=== PATIENT | female | born 1945 | race African-American/Black ===

== ENCOUNTER 2016-05-27 | Inpatient (IN) | payer MEDICARE ==
[~2016-05-27] VITALS: Ht 154.9 cm; Wt 64.4 kg
--- NOTE | 2016-05-27 00:40 | NUR ---
SEEN AND EXAMINED BY ERMD , PT IS FOR XRAYS.
[2016-05-27] MEDS ORDERED: DICLOFENIC INJ (00:42)
[2016-05-27] MEDS ORDERED: ATOR20TA PO (00:42)
[2016-05-27] MEDS ORDERED: AMLO10TA2 PO (00:42)
[2016-05-27] MEDS ORDERED: [UNRECOGNIZED DRUG - OTHER] PO (00:42)
[2016-05-27] MEDS ORDERED: TRAMADOL PO (00:42)
[2016-05-27] MEDS ORDERED: METF-494 PO (00:42)
[2016-05-27] MEDS ORDERED: LEVO75TA7 PO (00:42)
[2016-05-27] MEDS ORDERED: KETOROLAC TROMETHAMINE 30 MG INJ ONE (00:43)
[2016-05-27] MEDS ORDERED: KETOROLAC TROMETHAMINE 30 MG INJ IM ONE (00:45)
[2016-05-27] MEDS ORDERED: NITROGLYCERIN OINT 1 GM PACKET TP ONE ×2 (02:30→03:03)
[2016-05-27] MEDS ORDERED: ASPIRIN 81 MG TAB.CHEW PO ONE (02:30)
--- NOTE | 2016-05-27 02:30 | NUR ---
DR CHO IN TO TALK TO PT REGARDING HER NEG RESULTS, PT NOW COMPLAINING OF CHEST DISCOMFORT TO THE DR.WANTED TO BE ADMITTED. EKG DONE , PLACED ON THE MONITOR-SR,SL INSERTED TO RT AC AND BLOOD DRAWN.ASPIRIN AND NITRO PASTE GIVEN TO PT.
[2016-05-27] MEDS ORDERED: ASPIRIN 81 MG TAB.CHEW ONE (03:03)
[2016-05-27 03:05] LABS: MONOCYTES # (AUTO) 0.6 K/uL (0.1-1.30); WHITE BLOOD COUNT (AUTO) 9.9 K/uL (4.0-11.2)
[2016-05-27 04:16] LABS: LYMPHOCYTES # (AUTO) 1.9 K/uL (0.8-4.8)
[2016-05-27 04:53] LABS: CALCIUM 9.1 mg/dL (8.5-10.1); CREATININE 0.9 mg/dL (0.6-1.3); POTASSIUM 3.7 mmol/L (3.5-5.1)
[2016-05-27 04:54] LABS: EOSINOPHILS # (AUTO) 0.2 K/uL (0.0-0.7); EOSINOPHILS % (AUTO) 2.2 % (0.0-7.0); HEMATOCRIT 41.9 % (37.0-47.0); HEMOGLOBIN 13.7 g/dL (12.0-16.0); LYMPHOCYTES % (AUTO) 19.4 % (20.5-51.5); MEAN CORPUSCULAR HEMOGLOBIN 28.3 uug (27.0-31.0); MEAN CORPUSCULAR HGB CONC 33 g/dL (32.0-37.0); MEAN CORPUSCULAR VOLUME 86.4 fL (81.0-99.0); MONOCYTES % (AUTO) 6.2 % (0.0-11.0); NEUTROPHILS # (AUTO) 7.2 K/uL (1.8-8.9); NEUTROPHILS % (AUTO) 72.2 % (38.5-71.5); PLATELET COUNT (AUTO) 265 K/uL (150-450); RED BLOOD CELL COUNT(AUTO) 4.85 MIL/uL (4.20-5.40); RED CELL DISTRIBUTION WIDTH 13.5 % (11.5-14.5)
[2016-05-27 05:05] LABS: BILIRUBIN,DIRECT 0.1 mg/dL (0.0-0.2); BILIRUBIN,TOTAL 0.3 mg/dL (0.2-1.0); TOTAL PROTEIN, SERUM 7.7 g/dL (6.4-8.2)
--- NOTE | 2016-05-27 05:38 | NUR ---
LAB RESULTSIN DR MORENO CALLED BACK.
--- NOTE | 2016-05-27 06:01 | NUR ---
PT FOR TELE ADMIT, REPORT GIVEN TO CARLA PT TO GO TO 216 AT 0630 PER NURSE REQ.
--- NOTE | 2016-05-27 06:35 | NUR ---
PT WAS BROUGHT IN TO FLOOR VIA WHEELCHAIR, ADMITTED TO TELE UNDER DR. MORENO. DX: CHESTPAIN. A/O X 4. ABLE TO MAKE NEEDS KNOWN. DENIES CHEST PAIN AT THIS TIME. BELONGING LIST REVIEWED.
[2016-05-27 06:46] VITALS: BP 133/77
--- NOTE | 2016-05-27 08:03 | NUR ---
PT ADMITTED, DR ESPOSITO PAGED FOR ORDERS
--- NOTE | 2016-05-27 09:07 | NUR ---
SECOND CALL PLACED TO DR ESPOSITO, DR JOSHI CALLED BACK AND ORDERED PAIN MEDICATION FOR PT PAIN AND SAID DR MATTHEWS WILL BE IN SHORTLY TO COMPLETE FURTHER ORDERS
[2016-05-27] MEDS ORDERED: KETOROLAC TROMETHAMINE 30 MG INJ IM PRN (09:15)
--- NOTE | 2016-05-27 11:20 | NUR ---
STILL NO ORDERS, PAGED DR MATTHEWS AGAIN. PT RESTING COMFORTABLY IN BED, SR ON THE TELE MONITOR.
[2016-05-27] MEDS ORDERED: ONDANSETRON 4 MG/2 ML VIAL IV PRN (12:00)
[2016-05-27] MEDS ORDERED: ACETAMINOPHEN 325 MG TABLET PO PRN (12:00)
[2016-05-27] MEDS ORDERED: HYDROMORPHONE 1 MG/1 ML DISP.SYRIN IV PRN (12:00)
[2016-05-27 12:01] VITALS: BP 138/67
--- NOTE | 2016-05-27 12:08 | NUR ---
SPOKE WITH DR MATTHEWS, TEL/RBO ORDERS GIVEN, WILL FOLLOW THROUGH
[2016-05-27] MEDS: NITROGLYCERIN OINT 1 GM PACKET TP SCH ×2 (13:01→18:13)
--- NOTE | 2016-05-27 15:38 | NUR ---
PT RESTING COMFORTABLY IN BED, STATES NO MORE CHEST PAIN OR PRESSURE AT THIS TIME. SR ON THE TELE MONITOR, ALL SAFETY AND COMFORT MEASURES ATTENDED TO, CALL LIGHT IN REACH.
[2016-05-27 16:13] VITALS: BP 127/74
[2016-05-27] MEDS: METFORMIN HCL 500 MG TABLET PO SCH (18:00)
--- NOTE | 2016-05-27 18:16 | NUR ---
pt refusing metformin at this time. states "twice a day is too much and I know my body, I do not need it right now. I will take it in the morning."
[2016-05-27 19:00] VITALS: BP 140/79
[2016-05-27] MEDS: TRAMADOL HCL 50 MG TABLET PO PRN (20:47)
[2016-05-27] MEDS: ATORVASTATIN 20 MG TABLET PO SCH (20:47)
[2016-05-27] MEDS: ENOXAPARIN SODIUM 40 MG/0.4 ML DISP.SYRIN SQ SCH (20:49)
[2016-05-28] MEDS: NITROGLYCERIN OINT 1 GM PACKET TP SCH ×4 (00:24→18:00)
[2016-05-28 00:36] VITALS: BP 138/56
[2016-05-28 04:00] VITALS: BP 123/70
--- NOTE | 2016-05-28 06:00 | NUR ---
PT ALERT,ORIENTED,AMBULATORY, C/O BACK PAIN ALL NIGHT ,TRAMADOL GIVEN BUT DIDN'T GIVE ANY RELIEF ,STARTED NEW IV SITE AND GIVEN DILAUDID IV,PT STATED IT ONLY PUT HER TO SLEEP BUT NOT RELIEVING THE PAIN,REFUSED TRAMADOL THIS MORNING AND SHE WILL ASK MD FOR PAIN MEDS.DIDN'T WANT ME TO CALL MD LAST NIGHT SHE DON'T WANT TO BOTHER THE DOCTOR.REFUSED LOVENOX SHOT DESPITE EXPLAINING THE RISK AND BENEFITS OF THE MEDS AND PT STILL REFUSED ,AND SHE WILL WALK TODAY. SLEEPING AFTER PAIN SHOT OTHERWISE CONTINUE TO HAVE BACK PAIN SHE SAYS SHE HAS OSTEOARTHRITIS IN THE BACK,ENDORSED TO NEXT SHIFT REGARDING PAIN MANAGEMENT.WILL CONTINUE TO MONITOR.
[2016-05-28] MEDS: PANTOPRAZOLE SODIUM 40 MG TABLET.DR PO SCH (07:04)
[2016-05-28] MEDS: LEVOTHYROXINE SODIUM 75 MCG TABLET PO SCH (07:04)
[2016-05-28 07:07] LABS: BASOPHILS # (AUTO) 0.1 K/uL (0.0-0.2); BASOPHILS % (AUTO) 0.8 % (0.0-2.0); EOSINOPHILS # (AUTO) 0.3 K/uL (0.0-0.7); EOSINOPHILS % (AUTO) 3.3 % (0.0-7.0); HEMATOCRIT 37.2 % (37.0-47.0); HEMOGLOBIN 12.5 g/dL (12.0-16.0); LYMPHOCYTES # (AUTO) 1.7 K/uL (0.8-4.8); LYMPHOCYTES % (AUTO) 21.9 % (20.5-51.5); MEAN CORPUSCULAR HEMOGLOBIN 29.1 uug (27.0-31.0); MEAN CORPUSCULAR HGB CONC 34 g/dL (32.0-37.0); MEAN CORPUSCULAR VOLUME 86.9 fL (81.0-99.0); MONOCYTES # (AUTO) 0.5 K/uL (0.1-1.30); NEUTROPHILS # (AUTO) 5.2 K/uL (1.8-8.9); PLATELET COUNT (AUTO) 255 K/uL (150-450); RED BLOOD CELL COUNT(AUTO) 4.28 MIL/uL (4.20-5.40); RED CELL DISTRIBUTION WIDTH 13.4 % (11.5-14.5); WHITE BLOOD COUNT (AUTO) 7.8 K/uL (4.0-11.2)
[2016-05-28 07:29] LABS: ALBUMIN 3.4 g/dL (3.4-5.0); BILIRUBIN,TOTAL 0.4 mg/dL (0.2-1.0); CALCIUM 8.5 mg/dL (8.5-10.1); CREATININE 0.7 mg/dL (0.6-1.3); MAGNESIUM 1.9 mg/dL (1.8-2.4); PHOSPHOROUS 4.1 mg/dL (2.5-4.9); TOTAL PROTEIN, SERUM 6.7 g/dL (6.4-8.2)
[2016-05-28] MEDS: AMLODIPINE 10 MG TABLET PO SCH (08:23)
[2016-05-28] MEDS: METFORMIN HCL 500 MG TABLET PO SCH ×2 (08:23→18:00)
[2016-05-28] MEDS: CELECOXIB 200 MG CAPSULE PO SCH ×2 (09:39→20:35)
[2016-05-28 11:48] LABS: *RHEUMATOID FACTOR SCREEN NEGATIVE (NEGATIVE)
[2016-05-28 11:50] VITALS: BP 122/74
--- NOTE | 2016-05-28 13:23 | NUR ---
PT REPORT GIVEN TO PEYMAN ELIZALDE [facility] Addendum: 05/28/16 at 1324 by MASOOD GAY RN WRONG PT NOTES
[2016-05-28] MEDS: TRAMADOL HCL 50 MG TABLET PO PRN (14:12)
[2016-05-28 16:37] VITALS: BP 138/78
--- NOTE | 2016-05-28 18:30 | NUR ---
PT REMOVED HER IV, STATES "I DON'T WANT IT, I DON'T NEED IT". EDUCATED THE PRT ON IMPORTANCE OF HAVING IV ACCESS. PT REFUSES TO HAVE IT.
[2016-05-28 19:00] VITALS: BP 158/81
--- NOTE | 2016-05-28 19:22 | NUR ---
PUT IN THE NEW ORDER FOR MRSA SURVEILLANCE SWAB PER INFECTION CONTROL SUPERVISOR DRY CELL ASSEMBLY. PT IS LAYING IN BED COMFORTABLY. NO S/S OF RESPIRATORY DISTRESS NOTED. ALL SAFETY NEEDS ARE MET. NO PAIN NOTED.
[2016-05-28] MEDS: ATORVASTATIN 20 MG TABLET PO SCH (20:35)
[2016-05-28] MEDS: ENOXAPARIN SODIUM 40 MG/0.4 ML DISP.SYRIN SQ SCH (20:38)
--- NOTE | 2016-05-28 21:29 | NUR ---
Dr. Moser came and talk to pt, pt d/cd on monitor.
[2016-05-29] MEDS: NITROGLYCERIN OINT 1 GM PACKET TP SCH ×4 (01:01→17:56)
[2016-05-29 04:00] VITALS: BP 117/64
[2016-05-29] MEDS: PANTOPRAZOLE SODIUM 40 MG TABLET.DR PO SCH (06:19)
[2016-05-29] MEDS: LEVOTHYROXINE SODIUM 75 MCG TABLET PO SCH (06:19)
--- NOTE | 2016-05-29 07:55 | NUR ---
UNEVENTFUL NIGHT ,SLEPT WELL,PAIN WELL CONTROLLED WITH CELEBREX.
[2016-05-29] MEDS: METFORMIN HCL 500 MG TABLET PO SCH ×2 (08:00→17:56)
[2016-05-29] MEDS: AMLODIPINE 10 MG TABLET PO SCH (08:38)
[2016-05-29] MEDS: CELECOXIB 200 MG CAPSULE PO SCH ×2 (08:42→21:54)
[2016-05-29 11:52] VITALS: BP 126/78
[2016-05-29 15:47] VITALS: BP 125/71
[2016-05-29 18:21] LABS: *ANTI-SCLERODERMA-70 AB <0.2 AI (0.0-0.9); *RNP ANTIBODIES <0.2 AI (0.0-0.9); *SJOGREN'S ANTI-SS-A 1.6 AI (0.0-0.9); *SJOGREN'S ANTI-SS-B <0.2 AI (0.0-0.9); *SMITH ANTIBODIES <0.2 AI (0.0-0.9); ANTI-DNA(DS) AB, QN <1 IU/mL (0-9); ANTI-NUCLEAR AB DIRECT Positive (Negative)
[2016-05-29 20:00] VITALS: BP 148/84
[2016-05-29] MEDS: ENOXAPARIN SODIUM 40 MG/0.4 ML DISP.SYRIN SQ SCH (21:00)
[2016-05-29] MEDS: ATORVASTATIN 20 MG TABLET PO SCH (21:54)
[2016-05-30] MEDS: PANTOPRAZOLE SODIUM 40 MG TABLET.DR PO SCH (06:33)
[2016-05-30] MEDS: LEVOTHYROXINE SODIUM 75 MCG TABLET PO SCH (06:33)
[2016-05-30] MEDS: NITROGLYCERIN OINT 1 GM PACKET TP SCH ×3 (06:36→11:14)
[2016-05-30 06:38] VITALS: BP 139/76
[2016-05-30] MEDS: CELECOXIB 200 MG CAPSULE PO SCH (08:13)
[2016-05-30] MEDS: AMLODIPINE 10 MG TABLET PO SCH (08:14)
[2016-05-30] MEDS: METFORMIN HCL 500 MG TABLET PO SCH (08:14)
[2016-05-30 11:52] VITALS: BP 125/71
[2016-05-30] MEDS: TRAMADOL HCL 50 MG TABLET PO PRN (13:42)
--- NOTE | 2016-05-30 14:50 | NUR ---
ALL DISCHARGE INSTRUCTIONS GIVEN TO PATIENT AND REPORT CALLED, SPOKE WITH MARCIA RN WEB APPLICATIONS DEVELOPER AT. [facility]BULANCE HERE TO OUTREACH ANALYST PATIENT AT THIS TIME.
== END 2016-05-30 15:10 | DRG 206 ==
LOC: ER 00:03 → TELE 05:54 → MED 05-28 21:27
PROVIDERS: ADMIT Internal Medicine; ATTEND Internal Medicine
DX: M94.0 Chondrocostal junction syndrome [Tietze] (principal); E11.9 Type 2 diabetes mellitus without complications; K21.9 Gastro-esophageal reflux disease without esophagitis; E03.9 Hypothyroidism, unspecified; I10 Essential (primary) hypertension; E78.5 Hyperlipidemia, unspecified; G89.29 Other chronic pain; M13.0 Polyarthritis, unspecified; R00.2 Palpitations; K29.70 Gastritis, unspecified, without bleeding
CPT/HCPCS: 36415; 70030-TC; 71010; 72072; 73560; 73562; 83735; 84100; 84443; 84480; 85025; 85651; 85730; 86038; 86430; 93005; 93307; A4663; J1170; J1885

== ENCOUNTER 2016-10-30 12:14 | Inpatient (IN) | payer MEDICARE, OTHER ==
[~2016-10-30] VITALS: Ht 154.9 cm; Wt 56.7 kg
[~2016-10-30 12:14] MED LIST: AMLO10TA2 PO; ATOR20TA PO; DICLOFENIC INJ; LEVO75TA7 PO; METF-494 PO; TRAMADOL PO; [UNRECOGNIZED DRUG - OTHER] PO
[2016-10-30] MEDS ORDERED: ASPIRIN 325 MG TABLET PO ONE (12:45)
--- NOTE | 2016-10-30 12:45 | NUR ---
PATIENT REFUSES TO HAVE AN IV PLACED. STATES "I AM VERY DIFFICULT TO GET AN IV ON AND IF YOURE NOT USING IT, I DONT WANT IT". AWARE.
--- NOTE | 2016-10-30 12:52 | NUR ---
PATIENT WAS SEEN BY MD FOR C/O CHEST PAIN. 12 LEAD EKG DONE, PLACED ON CONTINUOUS CARDIAC MONITORING. LABS OBTAINED.
[2016-10-30] MEDS ORDERED: ASPIRIN 325 MG TABLET ONE (13:01)
[2016-10-30 13:04] LABS: CREATININE 0.7 mg/dL (0.6-1.3); POTASSIUM 3.9 mmol/L (3.5-5.1)
[2016-10-30 13:06] LABS: BASOPHILS % (AUTO) 0.4 % (0.0-2.0); EOSINOPHILS % (AUTO) 0.4 % (0.0-7.0); HEMATOCRIT 41.8 % (37-47); HEMOGLOBIN 13.6 G/DL (12.0-16.0); LYMPHOCYTES # (AUTO) 1.1 K/UL (0.8-4.8); LYMPHOCYTES % (AUTO) 13.4 % (20.5-51.5); MEAN CORPUSCULAR HGB CONC 33 g/dL (32.0-37.0); MONOCYTES # (AUTO) 0.3 K/UL (0.1-1.30); MONOCYTES % (AUTO) 3.5 % (0.0-11.0); NEUTROPHILS # (AUTO) 7.2 K/UL (1.8-8.9); NEUTROPHILS % (AUTO) 82.3 % (38.5-71.5); PLATELET COUNT (AUTO) 342 K/UL (150-450); RED BLOOD CELL COUNT(AUTO) 5.04 MIL/UL (4.2-5.4); WHITE BLOOD COUNT (AUTO) 8.6 K/UL (4.0-11.2)
--- NOTE | 2016-10-30 13:30 | NUR ---
PATIENT IS AWAKE AND ALERT WITH NO NEW COMPLAINTS.
[2016-10-30 13:31] LABS: BILIRUBIN,DIRECT 0.1 mg/dL (0.0-0.2); BILIRUBIN,TOTAL 0.3 mg/dL (0.2-1.0); TOTAL PROTEIN, SERUM 7.9 g/dL (6.4-8.2)
[2016-10-30] MEDS ORDERED: KETOROLAC TROMETHAMINE 30 MG INJ IM ONE (14:00)
[2016-10-30 14:01] LABS: EOSINOPHILS % (MANUAL) 1 % (0-8); LYMPHOCYTES % (MANUAL) 16 % (20-40); MONOCYTES % (MANUAL) 4 % (2-10); NEUTROPHILS % (MANUAL) 79 % (42-75)
--- NOTE | 2016-10-30 15:08 | NUR ---
PATIENT STATES PAIN HAS DIMINISHED SOME. SHE IS AWARE OF PENDING ADMISSION. REPORT GIVEN TO MASOOD NGUYEN.
--- NOTE | 2016-10-30 15:12 | NUR ---
PATIENT IS ADAMANTLY REFUSING AN IV.
[2016-10-30 15:47] VITALS: BP 138/70
--- NOTE | 2016-10-30 16:42 | NUR ---
IV REFUSED, PT WANTS DNR/DNI. DR. MATTHEWS IS AWARE. OK PER DR. PT REFUSED PAIN MEDICATION, PT STATES "PAIN 10/10 WHEN TAKE DEEP BREATH"
[2016-10-30] MEDS ORDERED: ACETAMINOPHEN 325 MG TABLET PO PRN (17:15)
[2016-10-30] MEDS ORDERED: DEXTROSE 50% 50 ML DISP.SYRIN IV PRN (17:15)
[2016-10-30] MEDS ORDERED: ZOLPIDEM 5 MG TABLET PO PRN (17:15)
[2016-10-30] MEDS ORDERED: TRAMADOL XX PRN (17:15)
[2016-10-30] MEDS ORDERED: ONDANSETRON 4 MG/2 ML VIAL IV PRN (17:15)
[2016-10-30] MEDS ORDERED: MAGNESIUM HYDROXIDE 30 ML LIQUID UDC PO PRN (17:15)
[2016-10-30] MEDS ORDERED: Z GUARD REMEDY PASTE 57 GM TUBE TOP PRN (17:15)
[2016-10-30] MEDS: METFORMIN HCL 500 MG TABLET PO SCH (18:11)
--- NOTE | 2016-10-30 19:04 | NUR ---
END OF SHIFT REPORT: PT IS LAYING IN BED. NO S/S OF PAIN AT THIS TIME, PT DID STATE "I HAVE PAIN WHEN I TAKE A DEEP BREATH 10/10", ASKED THE PT IF SHE WOULD LIKE A PAIN MEDICATION. PT REFUSED. NO S/S OF RESPIRATORY DISTRESS NOTED. PT REFUSED TO HAVE AN IV, PT STATED "I DON'T NEED IV, IF I HAVE IV MEDS THAT ARE DUE, MAYBE". ALL SAFETY NEEDS ARE MET.
[2016-10-30 20:00] VITALS: BP 122/60
[2016-10-30] MEDS: ATORVASTATIN 20 MG TABLET PO SCH (20:40)
[2016-10-30] MEDS: HYDROCODONE/APAP 5-325MG TABLET PO PRN (20:41)
--- NOTE | 2016-10-30 21:00 | NUR ---
patient awake,alert,oriented,reported no chest pain at this times,but c/o right upper back pain 10/,[place] 5-325 mg po admin,nsr on monitor, bp stable.
[2016-10-30] MEDS: BLOOD SUGAR DIAGNOSTIC 1 EACH STRIP VI SCH (22:24)
[2016-10-30] MEDS: INSULIN REGULAR, HUMAN 300 UNIT/3 ML VIAL SQ PRN (22:25)
[2016-10-31] VITALS: BP 121/58
[2016-10-31 04:00] VITALS: BP 127/67
--- NOTE | 2016-10-31 06:31 | NUR ---
no acute distress,patient refused lab blood drawn this am.
[2016-10-31] MEDS: PANTOPRAZOLE SODIUM 40 MG TABLET.DR PO SCH (06:49)
[2016-10-31] MEDS: LEVOTHYROXINE SODIUM 75 MCG TABLET PO SCH (06:50)
[2016-10-31] MEDS: BLOOD SUGAR DIAGNOSTIC 1 EACH STRIP VI SCH ×4 (06:54→20:50)
--- NOTE | 2016-10-31 07:00 | NUR ---
Pt sleeping. No s/s of distress. Monitor for pain management.
--- NOTE | 2016-10-31 07:48 | NUR ---
Pt refused morning insulin via sliding scale. Dr arthur made aware.
--- NOTE | 2016-10-31 07:51 | NUR ---
Dr Christian made aware of pt refusing insulin. Blood sugar 133. ok to just continue Gllucophage
[2016-10-31] MEDS: AMLODIPINE 10 MG TABLET PO SCH (08:19)
[2016-10-31 08:26] LABS: BASOPHILS % (AUTO) 0.8 % (0.0-2.0); EOSINOPHILS # (AUTO) 0.2 K/uL (0.0-0.7); EOSINOPHILS % (AUTO) 3.1 % (0.0-7.0); HEMATOCRIT 40.6 % (37-47); HEMOGLOBIN 13.3 G/DL (12.0-16.0); LYMPHOCYTES # (AUTO) 1.1 K/UL (0.8-4.8); LYMPHOCYTES % (AUTO) 19.2 % (20.5-51.5); MEAN CORPUSCULAR HEMOGLOBIN 26.9 UUG (27.0-31.0); MEAN CORPUSCULAR HGB CONC 33 g/dL (32.0-37.0); MEAN CORPUSCULAR VOLUME 82.7 FL (81.0-99.0); MONOCYTES # (AUTO) 0.2 K/UL (0.1-1.30); MONOCYTES % (AUTO) 4.1 % (0.0-11.0); NEUTROPHILS # (AUTO) 4.4 K/UL (1.8-8.9); NEUTROPHILS % (AUTO) 72.8 % (38.5-71.5); PLATELET COUNT (AUTO) 323 K/UL (150-450); RED BLOOD CELL COUNT(AUTO) 4.92 MIL/UL (4.2-5.4); WHITE BLOOD COUNT (AUTO) 5.9 K/UL (4.0-11.2)
[2016-10-31] MEDS: METFORMIN HCL 500 MG TABLET PO SCH (08:26)
[2016-10-31] MEDS: HYDROCODONE/APAP 5-325MG TABLET PO PRN ×3 (08:26→21:31)
[2016-10-31 08:41] LABS: CREATININE 0.6 mg/dL (0.6-1.3); MAGNESIUM 1.8 mg/dL (1.8-2.4); PHOSPHOROUS 3.5 mg/dL (2.5-4.9)
[2016-10-31] MEDS ORDERED: IV NORMAL SALINE 250 ML IV ONE (09:27)
[2016-10-31] MEDS ORDERED: IOHEXOL 350 100 ML INFUS..BTL ONE (09:27)
--- NOTE | 2016-10-31 10:00 | NUR ---
Pt went down for CT Angiogram at this time.
[2016-10-31 11:39] VITALS: BP 118/73
--- NOTE | 2016-10-31 11:57 | NUR ---
Pt alert, awake, sitting in bed. Blood sugar noted 127. Awaiting CTA chest results. No signs of acute pain or distress. Continue with pain management. Continue treatment as care planned. Initiated Physical therapy for strengthening. See notes.
--- NOTE | 2016-10-31 14:26 | NUR ---
Pt c/o pain to backside. PRN [place] given. Refused to maintain hep lock and requested removal. IV site removed without increased bleeding. Continue monitoring for pain.
[2016-10-31 15:51] VITALS: BP 123/68
--- NOTE | 2016-10-31 16:58 | NUR ---
PT'S TELE MONITOR REMOVED PER MD. BLOOD SUGAR NOTED 144. PT STATES SHE STILL WANTS TO REFUSE INSULIN. "I JUST ATE MY PUDDING".
[2016-10-31] MEDS: INSULIN REGULAR, HUMAN 300 UNIT/3 ML VIAL SQ PRN (18:22)
--- NOTE | 2016-10-31 18:28 | NUR ---
PT STATED SHE CHANGED HER MIND AND WOULD LIKE TO HAVE THE INSULIN ADMINISTERED. 2 UNITS SQ GIVEN. PT TOLERATED WELL.
[2016-10-31 20:32] VITALS: BP 104/58
[2016-10-31] MEDS: ATORVASTATIN 20 MG TABLET PO SCH (20:50)
--- NOTE | 2016-10-31 21:30 | NUR ---
patient awake,alert, reported no chest pain,but back pain 7/10 scale, [place] 5-325 mg po admin for pain control,blood sugar 118, no coverage,patient resting well no distress.
[2016-11-01 04:49] VITALS: BP 125/68
--- NOTE | 2016-11-01 06:00 | NUR ---
patient in no acute distress,vital signs remains stable,needs attended.
[2016-11-01] MEDS: BLOOD SUGAR DIAGNOSTIC 1 EACH STRIP VI SCH ×4 (06:25→20:09)
[2016-11-01] MEDS: LEVOTHYROXINE SODIUM 75 MCG TABLET PO SCH (06:25)
[2016-11-01] MEDS: PANTOPRAZOLE SODIUM 40 MG TABLET.DR PO SCH (06:25)
[2016-11-01] MEDS ORDERED: CELECOXIB 100 MG CAPSULE PO SCH (09:00)
[2016-11-01] MEDS: AMLODIPINE 10 MG TABLET PO SCH (10:41)
[2016-11-01] MEDS: MAG HYDROX/AL HYDROX/SIMETH 30 ML LIQUID UDC PO PRN ×2 (10:44→19:36)
[2016-11-01] MEDS: INSULIN REGULAR, HUMAN 300 UNIT/3 ML VIAL SQ PRN (10:45)
[2016-11-01 11:08] VITALS: BP 141/71
[2016-11-01] MEDS: TRAMADOL HCL 50 MG TABLET PO PRN ×2 (12:59→20:07)
[2016-11-01 15:08] VITALS: BP 142/69
--- NOTE | 2016-11-01 18:04 | NUR ---
Patient does not wish to have an Endoscopy. Dr. Bashir called to discuss options with the patient, listing both pros and cons. Patient however continues to refuse stating, "I have been through enough with the two knee replacements. I don't want to get an IV, it hurts".
--- NOTE | 2016-11-01 19:30 | NUR ---
RECEIVED PATIENT LAYING COMFORTABLY IN BED. NO ACUTE DISTRESS NOTED. SAFETY INITIATED. CALL LIGHT WITHIN REACH. NO IV SITE NOTED. PATIENT STATES "I DO NOT WANT ANY IV". PATIENT COMPLAINED OF BACK PAIN 11/24. WILL REVIEW ALL MEDS. WILL GIVE MEDS ORDERED. WILL CONTINUE TO MONITOR.
[2016-11-01 20:00] VITALS: BP 114/64
[2016-11-01] MEDS: ATORVASTATIN 20 MG TABLET PO SCH (20:07)
[2016-11-02] MEDS: PANTOPRAZOLE SODIUM 40 MG TABLET.DR PO SCH (06:01)
[2016-11-02] MEDS: LEVOTHYROXINE SODIUM 75 MCG TABLET PO SCH (06:01)
[2016-11-02 06:03] VITALS: BP 143/73
--- NOTE | 2016-11-02 06:31 | NUR ---
NO CHANGES T/O SHIFT. PATIENT STILL REFUSES IV RE-INSERTION. ALL PO MEDS GIVEN ORDERED. ALL NEEDS MET
[2016-11-02] MEDS: BLOOD SUGAR DIAGNOSTIC 1 EACH STRIP VI SCH ×3 (06:39→16:30)
--- NOTE | 2016-11-02 07:30 | NUR ---
on bed sleeping comfortable. no distress noted. bilateral legs with dressing.
[2016-11-02] MEDS ORDERED: METFORMIN HCL 500 MG TABLET PO SCH (08:00)
[2016-11-02] MEDS: AMLODIPINE 10 MG TABLET PO SCH (08:53)
--- NOTE | 2016-11-02 09:20 | NUR ---
Discharge Plan: Once patient is medically cleared patient will be discharged back to [facility] [[address] [place] [id number] ]. Patient will be transported via ambulance.
--- NOTE | 2016-11-02 09:32 | NUR ---
medicated for complaint of pain pending result.
[2016-11-02 11:01] VITALS: BP 120/70
[2016-11-02] MEDS: MAG HYDROX/AL HYDROX/SIMETH 30 ML LIQUID UDC PO PRN (11:10)
[2016-11-02] MEDS: INSULIN REGULAR, HUMAN 300 UNIT/3 ML VIAL SQ PRN (11:34)
--- NOTE | 2016-11-02 11:35 | NUR ---
bs 140 refused insulin coverage.
--- NOTE | 2016-11-02 13:27 | NUR ---
seen by dr guzmán, anxious to go. change clothes per self, just awaiting dc. denies discomfort, tolerated food well.
[2016-11-02 15:02] VITALS: BP 130/69
--- NOTE | 2016-11-02 16:00 | NUR ---
dsicharge instruction provided, anxious to go back to rehab.
--- NOTE | 2016-11-02 16:01 | NUR ---
report given to dejan santa , [facility]
--- NOTE | 2016-11-02 17:35 | NUR ---
dc to [facility] as order with belongings.
== END 2016-11-02 17:35 | DRG 206 ==
LOC: ER 12:14 → TELE 15:02 → MED 10-31 17:29
PROVIDERS: ADMIT Internal Medicine; ATTEND Internal Medicine
DX: M94.0 Chondrocostal junction syndrome [Tietze] (principal); I10 Essential (primary) hypertension; R62.7 Adult failure to thrive; E11.9 Type 2 diabetes mellitus without complications; E78.5 Hyperlipidemia, unspecified; Z66 Do not resuscitate; E03.9 Hypothyroidism, unspecified; Z96.653 Presence of artificial knee joint, bilateral; Z82.49 Family history of ischemic heart disease and other diseases of the circulatory system; Z79.899 Other long term (current) drug therapy; Z79.84 Long term (current) use of oral hypoglycemic drugs
CPT/HCPCS: 36415; 70030-TC; 71010; 71275; 72100; 83735; 84100; 85025; 85730; 93005; A4663; J1815; J7050; Q9967